=== PATIENT | male | born 1955 | race Caucasian/White ===

== ENCOUNTER 2016-07-25 13:50 | Inpatient (IN) | payer BC ==
[~2016-07-25] VITALS: Ht 185.4 cm; Wt 78.5 kg
--- NOTE | ~2016-07-25 | CATH ---
Cardiac Diagnostic Report Demographics Patient Name AMANDEEP Santos Gender Male Date of 1955 Age 61 year(s) Patient Number [id number] Date of Study 07/26/2016 Visit Number [id number] Room Number 401 Corporate ID Ht 185.42 cm Wt 79.38 kg Accession Number [id number] BSA 2.03 m kg/m Referring Tarun MARTINO Primary Physician Physician Sarkis Steele Performing Tarun MARTINO Secondary Physician Physician Sarkis Diagnostic Tarun MARTINO Assisting Physician Physician Sarkis Interventional Tarun MARTINO Physician Trim Master Operator Physician Sarkis Findings and Conclusions Diagnostic Findings and Conclusion Severe three vessel coronary artery disease. Elevated LVEDP Ischemic cardiomyopathy. Diagnostic Recommendations [facility] surgery consultation to consider CABG. Procedure Description The patient was brought to the diagnostic cardiac catheterization laboratory in the fasting, non-sedated state. Informed consent was obtained in the written and verbal form after the risks and benefits were explained. The patient had no further questions and agreed to proceed. The planned puncture-incision site(s) were clipped and prepped with ChloraPrep and draped in the usual sterile manner. Conscious sedation, supplemental oxygen, and pain control medications were delivered by a registered nurse under physician guidance. Surface ECG rhythm, blood pressure measurement, and pulse oximetry were monitored throughout the procedure. Arterial access. The right radial access site was infiltrated with lidocaine. The vessel was entered with the Seldinger technique. A 6F sheath was advanced into the vessel and used for catheter placement. Selective left coronary angiography. A TIG catheter was advanced into the left coronary vessel ostium under Fluoroscopic guidance. Contrast was injected by hand. Images were obtained in multiple projections. Selective right coronary angiography. A TIG catheter was advanced into the right coronary vessel ostium under fluoroscopic guidance. Contrast was injected by hand. Images were obtained in multiple projections. Left heart catheterization . An angled pigtail catheter was advanced across the aortic valve to the left ventricle under fluoroscopic guidance. Resting hemodynamics were obtained. LV pressure was obtained. The catheter was gradually withdrawn into the aorta with continuous pressure recording. Arterial artery hemostasis was achieved. The patient was transferred to a regular nursing floor via cart accompanied by a nurse. The patient left the laboratory in stable condition. Procedure Procedure Type Diagnostic procedure:Angiography:, [facility] Indications: Non-ST elevation NM, Diabetes and Tobacco use-current. The procedure was explained in detail to the patient. Risks, complications and alternative treatments were reviewed. Written consent was obtained. Medications Reviewed with Patient prior to Procedure. Complications: No Complication. Angiographic Findings Dominance: Left Cardiac Arteries and Lesion Findings LMCA: Abnormal. Lesion on LMCA: Ostial.30% stenosis . Lesion on LMCA: Distal subsection.30% stenosis . LAD: Abnormal. Lesion on Prox LAD: 90% stenosis .Culprit lesion. LCx: Abnormal. Lesion on Prox CX: 40% stenosis . Lesion on Mid CX: 50% stenosis . Lesion on Dist CX: 70% stenosis . Lesion on LPDA: Proximal subsection.90% stenosis . Lesion on 1st Ob Jovana: Proximal subsection.80% stenosis . Lesion on 2nd Ob Jovana: Proximal subsection.80% stenosis . Lesion on 3rd Ob Jovana: Proximal subsection.70% stenosis . RCA: Abnormal. Lesion on Prox RCA: Proximal subsection.100% stenosis . Ramus: Abnormal. Lesion on Ramus: Proximal subsection.80% stenosis . Cardiac Collaterals - collateral flow from the Dist LAD to the Dist RCA. Coronary Tree Procedure Data Procedure Date Date: 07/26/2016Start: 09:37 AMEnd: 10:02 AM Entry Locations - Percutaneous access was performed through the Right Radial artery (Primary location). A 6 Fr sheath was inserted. Hemostasis was successfully obtained using a TR band. Procedure Medications Order and Administration + + +-------+--------+ !Time !Medication !Dosage !Route ! + + +-------+--------+ !07/26/2016 !Versed !2 mg !I.V. ! !09:36 AM ! ! ! ! + + +-------+--------+ !07/26/2016 !Fentanyl !25 mcg !I.V. ! !09:36 AM ! ! ! ! + + +-------+--------+ !07/26/2016 !Sodium Chloride !10 ml !I.V. ! !09:36 AM ! ! ! ! + + +-------+--------+ !07/26/2016 !SF Radial Cocktail: 200mcg Nitro, 2.5 mg ! !I.A. ! !09:40 AM !Verapamil, 5000u Heparin ! ! ! + + +-------+--------+ !07/26/2016 !Oxygen !2 l/min!NC ! !09:25 AM ! ! ! ! + + +-------+--------+ Devices Used - A6 Fr6F TIG CATHETERwas used for:BilateralCoronary Angios. - A6 FrCATH 6FR PIG 145 110CM CATHETERwas used for:LeftsideLV Pressures. Contrast Material - Isovue 39174 ml Fluoroscopy Time: Diagnostic: 1:42 minutes. Total: 1:42 minutes. Fluoroscopy Dose: Diagnostic: 656 mGy. Total: 656 mGy. Estimated Blood Loss: 8 ml. Medical History Allergies - No known allergies. Risk Factors The patient risk factors include:insulin-treated diabetes mellitus, last creatinine: 0.8 mg/dl, creatinine clearance: 110.25 ml/min and Current/Recent(w/in 1 year) tobacco use. Admission Data Admission Date: 07/25/2016 Admission Time: 03:47 PM Insurance Payors: [employer] insurance. Clinical Evaluation Leading to Procedure Diagnosed on 07/25/2016 04:30 PM. - The patient's CAD presentation was assessed as: Non-STEMI. - The patient's anginal syndrome during the past two weeks was assessed as: Class III according to the [place] Cardiovascular Society Classification System (CCS). - The patient has been in a state of heart failure within the past two weeks. - The patient's heart failure status was assessed as NYHA Class I. Hemodynamics Condition: Rest O2 Consumption: Estimated: 244.97Heart Rate: 78 bpm Pressures (mmHg) +-----+ + !Site !Pressure ! +-----+ + !AO !112/73 (92) ! +-----+ + !LV !117/8 ,28 ! +-----+ + !LV !120/9 ,27 ! +-----+ + Shunts Oxygen Values O2 Capacity 189.04 O2 Consumption 244.97 Signatures
--- NOTE | ~2016-07-25 | ECH ---
Transthoracic Echocardiography Report (TTE) Demographics Patient Name OSCAR BERNSTEIN Date of Study 07/26/2016 Patient Number [id number] Visit Number [id number] Date of 1955 Room Number 401 Accession Number [id number] Gender Male Age 61 year(s) Referring Chaz Colon MD Business Instructor Amyaa Christianson [facility] Physician Kenan Steele Physician Interpreting Tarun MARTINO Diesel Power Mechanic Physician Sarkis Supervising Ordering Physician Chaz Colon MD, MD/P Nurse Stress Field Support Specialist Conclusions Contractility Score Summary At rest the following contractility abnormalities were noted: Hypokinesis of the Mid infero-septal, the Apical inferior, the Apical septal, the Basal infero-septal and the Apical lateral segments; Akinesis of the Mid anterior, the Mid bebeto-septal, the Basal bebeto-septal, the Apical anterior, the Basal anterior and the Apical cap segments. Contractility of all other segments appeared normal. Summary Technically good exam. The estimated left ventricular ejection fraction is 30%. Segmental wall motion abnormalities noted. Mild left ventricular hypertrophy. Mild-moderate mitral regurgitation by color Doppler. Mild tricuspid regurgitation by color Doppler. There is moderate pulmonary hypertension. The pulmonary pressure (RVSP) is 54 mmHg. Trivial pericardial effusion. Recommendation The patient was given the results of the exam during their hospital stay. Procedure Type of Study TTE procedure:Echo Complete SF. Procedure Date Date: 07/26/2016 Start: 07:40 AM Technical Quality: Adequate visualization Indications:Acute MT. Appropriate Use Criteria: 09 Height: 73 inches Weight: 175 pounds BSA: 2.03 m Rhythm: Within normal limits HR: 86 bpm BP: 130/90 mmHg M-Mode/2D Measurements LV Diastolic Dimension: 4.74 cm LV Systolic Dimension: 3.65 cm LV Septum Diastolic: 1.08 cm LV PW Diastolic: 1.29 cm AO Root Dimension: 2.48 cm Cardiac Output: 3.47 l/min LA Dimension: 2.2 cm Cardiac Index: 1.71 l/min*m RV Diastolic Dimension: 3.75 cm LA volume index: 30 ml/m LVOT: 2.04 cm LVOT VTI: 12.36 cm RV Base: 3.7 cm LV Stroke volume: 40.38 ml RV Mid: 2.2 cm LV Stroke volume index: 19.89 ml/m RV Length: 7.4 cm TAPSE: 2.3 cm TDI-S': 12 cm/s Doppler Measurements AV Peak Velocity: 0.8 m/s MV Peak E-Wave: 0.69 m/s AV Peak Gradient: 2.56 mmHg MV Peak A-Wave: 0.45 m/s AV Mean Gradient: 1.61 mmHg MV E/A Ratio: 1.53 LVOT Peak Velocity: 0.72 m/s MV P1/2t: 44.7 msec AV Area (Continuity):3.23 cm MV Deceleration Time: 182.3 msec TR Velocity:3.37 m/s MV Area (PHT): 4.93 cm TR Gradient:45.52 mmHg PV Peak Velocity: 0.66 m/s Estimated RAP:8 mmHg PV Peak Gradient: 1.75 mmHg Estimated RVSP: 54 mmHg Estimated PASP: 53.52 mmHg RA Area: 17.11 cm Findings Left Ventricle The left ventricle is normal in size . Mild left ventricular hypertrophy. Diastolic assessment reveals normal relaxation. Right Ventricle Normal right ventricle structure and function. Left Atrium Normal left atrial size. Right Atrium Normal right atrial size. Mitral Valve Normal mitral valve structure and function. Mild-moderate mitral regurgitation by color Doppler. Aortic Valve Normal aortic valve structure and function. Tricuspid Valve Normal tricuspid valve structure and function. Mild tricuspid regurgitation by color Doppler. There is moderate pulmonary hypertension. The pulmonary pressure (RVSP) is 54 mmHg. Pulmonic Valve Normal pulmonic valve structure and function. Pericardial Effusion Trivial pericardial effusion. Miscellaneous Visualized portions of the aortic root and ascending aorta appear normal in size. Pleural Effusion No evidence of pleural effusion. Contractility Score LV regional wall motion:(0-Non visualized 1-Normal 2-Hypokinesis 3-Akinesis 4-Dyskinesis 5-Aneurysm) Signature
--- NOTE | 2016-08-21 11:46 | HP ---
ADMIT: 07/25/2016 RM/LOC: 401 [facility] MR#: [id number] [address] [address] BERNSTEINOSCAR Danielle [address] [place] [address] History and Physical SEX: M AGE: 61 : 1955 DATE OF SERVICE: CHIEF COMPLAINT: Chest pain. HISTORY OF PRESENT ILLNESS: This is a 61-year-old white male, normally cared for by Dr. Cedric Grayson in our office, who presented in the emergency room with a 2-week history of intermittent chest discomfort. He states that about two weeks ago, he was moving some boxes, he works for [employer] and in fact had substernal tightness, squeezing across his chest. He would sit down, rest, and it went away but has been coming and going over the last two weeks, usually associated with exertion, usually radiates into his neck and down both arms, usually associated with diaphoresis. His girlfriend finally talked and made him come to the emergency room today, where he was found to have elevated cardiac enzymes consistent with a [id number] NC. Therefore, he is being admitted for further workup and stabilization. PAST MEDICAL HISTORY: Remarkable for: 1. Diabetes mellitus type 2. 2. Back surgery. ALLERGIES: NONE. CURRENT MEDICATIONS: 1. Baby aspirin. 2. Cymbalta. 3. Janumet. 4. A new diabetes injection that he does not know the name of, we will confirm with the pharmacy. FAMILY HISTORY: Father had colon cancer and coronary artery disease. Mother is , had diabetes. SOCIAL HISTORY: Smokes cigars daily. Occasional alcohol use. Works for [employer]. REVIEW OF SYSTEMS: GENERAL: No fevers or chills. HEENT: No headaches, blurry vision, or double vision. CARDIAC: As per HPI. PULMONARY: No shortness of breath. GI: No nausea, vomiting, or diarrhea. : No dysuria, urgency, or frequency. ENDOCRINE: No polyuria or polydipsia. PSYCH: No depression. All others are negative. PHYSICAL EXAMINATION: VITAL SIGNS: Blood pressure is 130/86, pulse 108, respirations 24, temp is 95.9. GENERAL: No acute distress. Alert and oriented. ADMIT: 07/25/2016 RM/LOC: 401 [facility] MR#: [id number] [address] [address] OSCAR BERNSTEIN [address] [place] [address] History and Physical SEX: M AGE: 61 : 1955 HEENT: Pupils are reactive. Conjunctivae are clear. NECK: Soft and supple. LUNGS: Clear to auscultation with normal respiratory effort. HEART: Regular rate and rhythm. ABDOMEN: Soft, it is nontender. EXTREMITIES: No cyanosis, no clubbing, no edema. NEUROLOGIC: Cranial nerves II through XII grossly intact. No focal deficits. LABORATORY AND X-RAY DATA: Q-waves anteriorly with delayed R-wave progression. Sodium 141, potassium 3.7, chloride 109, CO2 of 26, BUN 10, creatinine 0.8, glucose 236, calcium 8.6, LDH 323, lipase 142, magnesium 1.9. CK 146, MB 6.6, relative index 4.5. Troponin I is 4.93. TSH is 1.03. White count 11,500, hemoglobin 14.2, platelets 182,000. CT of the chest was negative for pulmonary embolism, but did show severe emphysema with some cardiogenic edema. ASSESSMENT: 1. Non ST-segment elevation myocardial infarction. 2. Diabetes mellitus type 2. 3. Nicotine dependence. PLAN: We will admit to tele. [facility] has been consulted, they have ordered anticoagulation and are planning on heart cath in a.m. We will hold Janumet in anticipation of the heart cath. We will control sugars with sliding scale insulin. Cordell Tyler MD/ ammon JOB #: [id number] CC: Cedric Grayson, Attending Physician Cedric Grayson, Family Physician
--- NOTE | 2016-08-21 21:25 | ER ---
ADMIT: 07/25/2016 RM/LOC: ER [facility] MR#: [id number] [address] [address] OSCAR BERNSTEIN [address] [place] [address] Emergency Room Report SEX: M AGE: 61 : 1955 DATE: 07/25/2016 This 61-year-old male comes to the Emergency Department with 7-14 days worth of chest pain, pressure, time sharp and pleuritic associated with coughing. Did not change with activity. He said he had numerous bouts of it throughout the lasts 1-2 weeks, each bout lasting well over an hour. He would just "wait them out" and would go away, but today became more intense, subsequently came to the Emergency Department. PAST MEDICAL HISTORY: Significant for hypertension, diabetes, cigarette smoking, and occasional alcohol. LIMITED PHYSICAL EXAMINATION: GENERAL: Reveals a 61-year-old gentleman, in no acute distress. HEENT: Normocephalic. LUNGS: Clear to auscultation. CARDIOVASCULAR: Regular rate. Tachycardic in the low 100s but no murmurs, rubs, or gallops. ABDOMEN: Soft, nontender with positive bowel sounds. EXTREMITIES: Reveal no clubbing, cyanosis, or edema. Cardiac workup was initiated. EKG was significant only for sinus tachycardia at a rate in the low 100s, meaning 106. The cardiac markers were elevated at 4.9. Troponin and CK-MB was elevated as was the cardiac index. CTA of the chest was done which only suggestive of congestive heart failure. Remainder of electrolytes were essentially within normal parameters. The patient is being admitted with non-STEMI. He was given Lopressor in the Emergency Department and heparin drip was initiated. Cardiology was consulted. Javier Hair MD/ ammon JOB #: [id number] CC: Alec Anderson MD, Attending Physician Cedric Grayson MD, Family Physician
--- NOTE | 2016-08-30 14:57 | CO ---
ADMIT: 07/25/2016 RM/LOC: 401 [facility] MR#: [id number] [address] [address] OSCAR WILDE [address] [place] [address] Consultation SEX: M AGE: 61 : 1955 DATE OF CONSULTATION: 07/25/2016 ATTENDING PHYSICIAN: Cedric Grayson CONSULTING PHYSICIAN: Akanksha Ware MD REASON FOR CONSULTATION: Chest pain and abnormal troponin. HISTORY OF PRESENT ILLNESS: We were asked to consult on Mr. Wilde at the request of Dr. Tyler for the problem of chest pain and abnormal troponin. He is a 61-year-old white male with known history of diabetes, tobacco use, and family history of coronary disease. 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 He denies any fevers or chills, cough or cold symptoms. He has had an unintentional weight loss over the past year, which was worked up by his primary physician. He is also diabetic. PAST MEDICAL HISTORY: 1. Diabetes. 2. Depression. 3. COPD. MEDICATIONS: 1. Janumet. 2. Brovana. 3. Cymbalta. ALLERGIES: NONE KNOWN. FAMILY HISTORY: Father with premature coronary disease and multivessel bypass. SOCIAL HISTORY: He is a smoker, employed at [employer]. REVIEW OF SYSTEMS: A full 12-point review of systems was obtained and deemed to be negative except for the pertinent dictated positives in HPI. PHYSICAL EXAMINATION: VITAL SIGNS: His blood pressure is 138/86, with a pulse of 101, O2 sats are 98% on room air. GENERAL: He is a pleasant, well-nourished, well-developed white male, in no acute distress. Alert and oriented x3. NECK: Shows brisk carotid upstrokes. No JVD or bruits. CHEST: Clear. HEART: Regular. ABDOMEN: Soft. EXTREMITIES: No cyanosis, clubbing, or edema. MUSCULOSKELETAL: Normal. ADMIT: 07/25/2016 RM/LOC: 401 [facility] MR#: [id number] [address] [address] OSCAR WILDE [address] [place] [address] Consultation SEX: M AGE: 61 : 1955 NEUROLOGIC: Normal. SKIN: [place], warm, and dry. LABORATORY AND ANCILLARY DATA: EKG shows sinus tachycardia with rate of 101, there is some Q-waves in the anterior leads. Sodium was 141, potassium 3.7, creatinine 0.8, glucose 236, CK 146, MB 6.6, troponin 4.9. White blood cell count was 11.5, hemoglobin 14.2, platelet count 182,000. Chest CTA shows no evidence of PE. ASSESSMENT AND PLAN: 1. Non ST-elevation myocardial infarction. 2. Tobacco use. 3. Diabetes. 4. Chronic obstructive pulmonary disease, symptoms started two weeks ago, likely occurred then. We will start heparin drip. He is given Lopressor already. We will dose statin and plan on catheterization in the morning for 3:00 a.m. as he already got CTA of the chest and contrast load today. Risks, benefits, and alternatives of the procedure were discussed and the patient agrees to proceed. Final recommendations will be pending results of the catheterization and echocardiogram. Akanksha Ware MD/ ammon JOB #: [id number] CC: Cedric Grayson, Attending Physician Cedric Grayson, Family Physician
--- NOTE | 2016-09-07 08:30 | DS ---
ADMIT: 07/25/2016 RM/LOC: 401 [facility] MR#: [id number] [address] [address] AMANDEEPOSCAR Danielle [address] [place] [address] General Discharge Summary SEX: M AGE: 61 : 1955 ADMISSION DATE: 07/25/2016 DISCHARGE DATE: 07/26/2016 FINAL DIAGNOSES: 1. Severe 3-vessel coronary artery disease. 2. Elevated left ventricular end-diastolic pressure. 3. Ischemic cardiomyopathy. 4. Non-ST elevation myocardial infarction. 5. Diabetes mellitus type 2. 6. Hypertension. 7. Hyperlipidemia. 8. Nicotine dependence. CONSULTATIONS: Cardiology with Isaiah Ware and Dr. Mcneil. PROCEDURES: Cardiac catheterization on 07/26/2016. REASON FOR ADMISSION: Please refer to dictated H and P by Dr. Tyler. Briefly, the patient with multiple risk factors, presented with 2-week history of intermittent chest pains. Was worsening and therefore he went to the Emergency Department for the workup and management. He was found to have elevated cardiac enzymes, was admitted on a heparin drip with cardiac consultation. HOSPITAL COURSE: The patient was admitted on routine orders. Started on heparin drip. Cardiology evaluated, took catheterization on 07/26/2016, found to have multivessel occlusive disease and decreased ejection fraction with cardiomyopathy. Recommendations by Cardiology were to transfer to [facility] for urgent open heart surgery with vascular bypass. There were no other major events during the hospitalization. The patient understood risks, benefits, and alternatives to transferring and was in agreement with the transfer. DISCHARGE MEDICATIONS: Refer to hospital record. DISCHARGE INSTRUCTIONS: The patient was instructed to follow up with Dr. Grayson and Cardiology following cardiac surgery. Instructed on all the risks and benefits, etc. Transfer activities took approximately 35 minutes. Greater than 50% spent in elsv-[id number] interaction. Cedric Grayson MD/ ammon JOB #: [id number] CC: Cedric Grayson MD, Attending Physician Cedric Grayson MD, Family Physician
== END 2016-07-26 14:04 | disposition short-term general hospital (02) | DRG 282 ==
LOC: ER 13:50 → 4PCU 15:47
PROVIDERS: ADMIT Family Medicine
PROC: 4A023N7 Measurement of Cardiac Sampling and Pressure, Left Heart, Percutaneous Approach (ICD-10-PCS; principal; 2016-07-26)
PROC: B2111ZZ Fluoroscopy of Multiple Coronary Arteries using Low Osmolar Contrast (ICD-10-PCS; principal; 2016-07-26)
DX: I21.4 Non-ST elevation (NSTEMI) myocardial infarction (principal); E11.9 Type 2 diabetes mellitus without complications; I10 Essential (primary) hypertension; F32.9 Major depressive disorder, single episode, unspecified; I25.5 Ischemic cardiomyopathy; E78.5 Hyperlipidemia, unspecified; I25.10 Atherosclerotic heart disease of native coronary artery without angina pectoris; J44.9 Chronic obstructive pulmonary disease, unspecified; F17.290 Nicotine dependence, other tobacco product, uncomplicated; Z79.82 Long term (current) use of aspirin; Z82.49 Family history of ischemic heart disease and other diseases of the circulatory system

== ENCOUNTER → 2016-09-10 | Outpatient (CLI) | payer BC | END | disposition home or self-care (01) | LOC: RAD.S 09-03 08:00 | DX: J90 Pleural effusion, not elsewhere classified (principal); I25.10 Atherosclerotic heart disease of native coronary artery without angina pectoris; Z95.1 Presence of aortocoronary bypass graft; Z98.890 Other specified postprocedural states ==